=== PATIENT | female | born 1975 | race Hispanic/Latino ===

== ENCOUNTER 2017-11-29 13:12 | Observation (INO) | payer BC ==
[~2017-11-29] VITALS: Ht 172.7 cm; Wt 93.0 kg
[2017-11-29] MEDS ORDERED: MORPHINE SULFATE INJ 10 MG/ML IV ONE (13:30)
[2017-11-29] MEDS ORDERED: PIPER-TAZ 3.375 GM 100 ML IV ONE (16:30)
--- OUTSIDE RECORDS SUMMARY | 2017-11-29 17:45 | XMS REPORT | Continuity of Care Document ---
Author Author [facility] Organization [facility] Address [address] [place] [place] [address] Phone Unavailable Care Team Providers Care Interior Block Wirer Name Role Phone EBONI HERNANDEZ MD PCP Insurance Providers Guarantor Nasreen Gray Address [address] [place] [address] Email [email or web address] Payer [facility] Policy Number [id number] Subscriber's Name Nasreen Gray Relationship 18 Self / Same As Patient Group Number [id number] Group Name [facility] Effective Date 17 Advance Directives Directive Response Recorded Date/Time Does the patient have an advance directive? No 10/22/08 9:53pm If yes, is advance directive on file with [facility]? No 10/22/08 9:53pm If not on file with [facility] will patient provide a copy? No 10/07/14 3:46pm Do you have a Directive to Physician? No 11/29/17 1:11pm Do you have a Medical Power of Airways Operations Specialist? No 11/29/17 1:11pm Do you have an out of hospital Do Not Resuscitate Order? No 11/29/17 1:11pm Do you have any special needs we should be aware of? No 11/29/17 1:11pm Do you have a support person here with you today? Yes 11/29/17 2:10pm Did patient receive Notice of Privacy Practices? Yes 11/29/17 1:11pm Did patient receive patient rights and responsibilities? Yes 11/29/17 1:11pm Problems No problem information available. Medications No medication information available. Social History No social history information available. Hospital Discharge Instructions No hospital discharge instruction information available. Plan of Care Discharge Date 11/29/17 5:28pm Disposition ADMITTED Condition at Discharge Stable Forms Provided Work/School Excuse Prescriptions See Medication Section Functional Status No functional status information available. Allergies, Adverse Reactions, Alerts No known allergies. Immunizations No immunization information available. Vital Signs Acute Vital Signs Vital Response Date/Time Pulse Pulse Rate (adult) 66 bpm (60 - 90) 11/29/2017 5:29pm Respiratory Rate 16 bpm (12 - 24) 11/29/2017 5:29pm Blood Pressure 131/79 mm Hg 11/29/2017 5:29pm Height 5 ft 8 in 11/29/2017 1:19pm Weight 203 lb 11/29/2017 1:19pm Body Mass Index 30.9 kg/m^2 11/29/2017 1:19pm Results No relevant diagnostic test, laboratory data and/or discharge summary information available. Procedures Procedure Status Date Provider(s) Laparoscopic appendectomy Active 11/30/17 NEO HARRIS MD Encounters Encounter Location Arrival/Admit Date Discharge/Depart Date Attending Provider Departed Emergency Room [facility] 11/29/17 1:12pm 5:28pm LAYTON AMBROSE MD
[2017-11-29] MEDS ORDERED: HYDROMORPHONE 1MG/1ML INJ IV PRN (19:15)
--- NOTE | 2017-11-29 19:43 | History and Physical ---
CHIEF COMPLAINT: Right lower quadrant pain. HISTORY OF PRESENT ILLNESS: Patient is a pleasant 42-year-old [facility] because of right lower quadrant pain. The pain had started the morning of admission. It was associated with nausea, vomiting. No diarrhea, no fever, no chills. The patient in the emergency room at [facility] had a CAT scan that revealed uncomplicated appendicitis. Her white count was normal. Vital signs were normal. The patient was then accepted as a transfer by me for further care. The patient's past history is remarkable for a gastric stapling as well as a band some 17 years ago. Past medical history is unremarkable. She is taking no meds. SOCIAL HISTORY: She does not drink, does not smoke. ALLERGIES: HAS NO ALLERGIES. FAMILY HISTORY: Noncontributory. REVIEW OF SYSTEMS: Significant for what has been stated. PHYSICAL EXAMINATION GENERAL: Reveals a 42-year-old female in no acute distress. VITAL SIGNS: She is afebrile with stable vital signs. HEAD, EYES, EARS, NOSE AND THROAT: Examination is unremarkable. LUNGS: Clear. HEART: Reveals regular rhythm. ABDOMEN: Soft with deep tenderness in the right lower quadrant with mild rebound. There were no masses. There is a healed midline supraumbilical incision. EXTREMITIES: Examination reveals no clubbing, cyanosis or edema. NEUROLOGICAL: Examination is nonfocal. ASSESSMENT: Acute nonperforated appendicitis. PLAN: Admit the patient, give intravenous antibiotics, hydration, and proceed with laparoscopic appendectomy 8 a.m. on November 30, 2017. Surgical plans were discussed with the patient. She agrees with the plan. Job#: [id number] EV
[2017-11-29 20:00] VITALS: BP 120/69
[2017-11-29] MEDS: D5.45%NS/KCL 20MEQ 1,000 ML IV SCH (20:32)
[2017-11-29] MEDS: PANTOPRAZOLE 40 MG 10ML VIAL IV SCH (20:45)
[2017-11-29] MEDS: CEFTRIAXONE SOD 2 GM VIAL IV SCH (20:51)
[2017-11-29] MEDS: HYDROMORPHONE 2MG/ML INJ IV PRN (22:06)
[2017-11-29] MEDS: METRONIDAZOLE 750MG/NS 150ML 150 ML IV SCH (23:14)
[2017-11-30] VITALS (8 sets, daily range): BP systolic 95–123; BP diastolic 51–72
[2017-11-30] MEDS: METRONIDAZOLE 750MG/NS 150ML 150 ML IV SCH ×3 (05:51→22:18)
[2017-11-30] MEDS: D5.45%NS/KCL 20MEQ 1,000 ML IV SCH ×2 (05:51→21:00)
[2017-11-30] MEDS: ONDANSETRON HCL INJ 2 MG/ML VIAL IV PRN ×2 (06:03→23:04)
[2017-11-30] MEDS ORDERED: BUPIVACAINE 0.25%/EPI 30ML SDV INJ ONE (07:20)
[2017-11-30] MEDS ORDERED: HYDROCODONE/APAP 7.5MG-325MG 1 EA TAB PO PRN (09:45)
[2017-11-30] MEDS ORDERED: METOCLOPRAMIDE HCL 10 MG/2ML VIAL ONE (09:49)
[2017-11-30] MEDS ORDERED: FENTANYL CITRATE/PF 100MCG/2 ML INJ ONE ×2 (10:00→17:40)
--- NOTE | 2017-11-30 14:51 | Operative Report ---
DATE OF PROCEDURE: November 30, 2017 PREOPERATIVE DIAGNOSIS: Acute appendicitis. POSTOPERATIVE DIAGNOSIS: Acute appendicitis. PROCEDURE PERFORMED: Laparoscopic appendectomy. ANESTHESIA: General endotracheal. ESTIMATED BLOOD LOSS: Minimal. DRAINS: None. COMPLICATIONS: None. MANNEQUIN SANDER AND FINISHER: SUMIT Olivas INDICATIONS AND FINDINGS: This patient is a 42-year-old female admitted from the emergency room at [facility] with acute appendicitis. She had developed pain in the morning of admission, and a CT scan revealed changes consistent with acute appendicitis. Her white count was normal. Physical examination revealed right lower quadrant tenderness with mild rebound. INTRAOPERATIVE FINDINGS: Acute nonperforated appendicitis. There were multiple adhesions from previous gastric stapling for morbid obesity. DESCRIPTION OF PROCEDURE: With the patient lying on the operative table in the supine position, after administration of general endotracheal anesthesia, she was prepped and draped for laparoscopic appendectomy. The procedure was begun by establishing a pneumoperitoneum in the right upper quadrant mid-clavicular line to stay away from the other incision. An incision was made and then a 5-mm trocar placed in that location. The camera was introduced in the umbilical port under direct vision with the camera. Then a 3rd port was placed in the right lower quadrant using 5-mm trocar. At this point, we inspected the operative field. The appendix was identified in the right gutter. It was mobilized through the different ports using bowel clamps. It was elevated. The junction with the cecum was identified. A rent was made in that location with the [place] dissector, and then the appendectomy was performed by firing the Endo KOSTA with the blue stapler across the base of the appendix with the cecum. Then the appendectomy was completed by firing the Endo KOSTA with a vascular white load across the mesentery of the appendix twice. The wound was irrigated. There was some minor bleeding coming from the staple line that was cauterized on the mesentery of the appendix. At this point, we irrigated the right lower quadrant, right gutter and upper quadrant until the effluent fluid was clear. After ascertaining that there was no bleeding and there was no evidence of bowel injury, we released the pneumoperitoneum and closed the wounds using #0 Vicryl for the umbilical fascia, 3-0 Vicryl for the subcutaneous tissue in that location as well as the two other 5-mm trocars. Then the skin of all the ports was closed using rodney. Marcaine 0.25% with epinephrine was used as a local block at the end of the case. The patient tolerated the procedure well and was taken to the recovery room in stable condition. Job#: [id number]
[2017-11-30] MEDS ORDERED: MIDAZOLAM HCL 2 MG/2 ML VIAL ONE (17:40)
[2017-11-30] MEDS ORDERED: ROCURONIUM BROMIDE 10 MG/ML 5ML VIAL ONE ×2 (19:26→19:30)
[2017-11-30] MEDS ORDERED: LIDOCAINE HCL 2% LOCAL INJ 5 ML SDV VIAL INJ ONE ×2 (19:26→19:30)
[2017-11-30] MEDS ORDERED: KETOROLAC TROMETHAMINE 30 MG/ML VIAL ONE ×2 (19:26→19:30)
[2017-11-30] MEDS ORDERED: PROPOFOL IV EMULSION 10 MG/ML 20 ML VIAL ONE ×2 (19:26→19:30)
[2017-11-30] MEDS ORDERED: ONDANSETRON HCL INJ 2 MG/ML VIAL ONE ×2 (19:26→19:30)
[2017-11-30] MEDS ORDERED: DEXAMETHASONE SOD PHOS INJ 4 MG/ML VIAL ONE ×2 (19:26→19:30)
[2017-11-30] MEDS ORDERED: SEVOFLURANE INHAL SOLN 250 ML PEN BTL ONE ×2 (19:26→19:30)
[2017-11-30] MEDS ORDERED: CEFTRIAXONE SOD 1 GM VIAL IV SCH (19:30)
[2017-11-30] MEDS: PANTOPRAZOLE 40 MG 10ML VIAL IV SCH (19:40)
[2017-11-30] MEDS: CEFTRIAXONE SOD 2 GM VIAL IV SCH (20:16)
[2017-11-30] MEDS: HYDROMORPHONE 2MG/ML INJ IV PRN (23:19)
[2017-12-01] VITALS (7 sets, daily range): BP systolic 105–117; BP diastolic 56–69
[2017-12-01] MEDS: D5.45%NS/KCL 20MEQ 1,000 ML IV SCH ×3 (04:23→16:35)
[2017-12-01] MEDS: METRONIDAZOLE 750MG/NS 150ML 150 ML IV SCH ×2 (05:50→14:03)
[2017-12-01 06:07] LABS: BASOPHILS % 0.2 % (0.0-1.0); EOSINOPHILS % 0.1 % (0.0-6.0); HEMATOCRIT 35.1 % (34.2-44.1); HEMOGLOBIN 12.2 g/dL (12.0-16.0); LYMPHOCYTES # (AUTO) 1.7 (1.0-3.2); LYMPHOCYTES % 15.6 % (18.0-39.1); MEAN CORPUSCULAR HEMOGLOBIN 31.7 pg (28-32); MEAN CORPUSCULAR HGB CONC 34.8 g/dL (31-35); MEAN CORPUSCULAR VOLUME 91.2 fL (81-99); MONOCYTES # (AUTO) 0.7 (0.2-0.8); MONOCYTES % 6.3 % (4.4-11.3); NEUTROPHILS # (AUTO) 8.6 (2.1-6.9); NEUTROPHILS % 77.5 % (38.7-80.0); PLATELET COUNT 232 x10e3/uL (140-360); RED BLOOD COUNT 3.85 x10e6/uL (3.6-5.1); RED CELL DISTRIBUTION WIDTH 12.2 % (11.7-14.4)
[2017-12-01 06:27] LABS: ANION GAP 11.1 mmol/L (8-16); BLOOD UREA NITROGEN < 5 mg/dL (7-26); BUN/CREATININE RATIO 7 (6-25); CALCIUM 8.3 mg/dL (8.4-10.2); CARBON DIOXIDE 26 mmol/L (22-29); CHLORIDE 106 mmol/L (98-107); CREATININE, SERUM 0.69 mg/dL (0.57-1.11); EST GLOMERULAR FILTRATION RATE > 60 ML/MIN (60-); GLUCOSE 102 mg/dL (74-118); POTASSIUM 4.1 mmol/L (3.5-5.1); SODIUM 139 mmol/L (136-145)
[2017-12-01] MEDS: HYDROMORPHONE 2MG/ML INJ IV PRN ×2 (10:22→18:53)
[2017-12-01] MEDS: ONDANSETRON HCL INJ 2 MG/ML VIAL IV PRN ×2 (10:23→22:20)
[2017-12-01] MEDS ORDERED: ONDANSETRON HCL 4 MG ORAL DISINTEGRATING TAB PO PRN (19:00)
[2017-12-01] MEDS: PANTOPRAZOLE 40 MG 10ML VIAL IV SCH (19:34)
[2017-12-01] MEDS: CEFTRIAXONE SOD 2 GM VIAL IV SCH (19:47)
[2017-12-02] VITALS: BP 106/53
[2017-12-02] MEDS: D5.45%NS/KCL 20MEQ 1,000 ML IV SCH ×2 (03:18→11:26)
[2017-12-02 04:00] VITALS: BP 92/50
[2017-12-02] MEDS: HYDROMORPHONE 2MG/ML INJ IV PRN (06:23)
[2017-12-02] MEDS: ONDANSETRON HCL INJ 2 MG/ML VIAL IV PRN (06:23)
[2017-12-02 06:56] LABS: BASOPHILS % 0.4 % (0.0-1.0); EOSINOPHILS % 0.6 % (0.0-6.0); HEMATOCRIT 35.4 % (34.2-44.1); HEMOGLOBIN 12.3 g/dL (12.0-16.0); LYMPHOCYTES # (AUTO) 1.2 (1.0-3.2); LYMPHOCYTES % 17.5 % (18.0-39.1); MEAN CORPUSCULAR HEMOGLOBIN 31.7 pg (28-32); MEAN CORPUSCULAR HGB CONC 34.7 g/dL (31-35); MEAN CORPUSCULAR VOLUME 91.2 fL (81-99); MONOCYTES # (AUTO) 0.6 (0.2-0.8); MONOCYTES % 7.9 % (4.4-11.3); NEUTROPHILS # (AUTO) 5.1 (2.1-6.9); NEUTROPHILS % 73.3 % (38.7-80.0); PLATELET COUNT 205 x10e3/uL (140-360); RED BLOOD COUNT 3.88 x10e6/uL (3.6-5.1); RED CELL DISTRIBUTION WIDTH 12.4 % (11.7-14.4)
[2017-12-02 07:27] LABS: BLOOD UREA NITROGEN < 5 mg/dL (7-26); CALCIUM 8.1 mg/dL (8.4-10.2); CARBON DIOXIDE 26 mmol/L (22-29); CHLORIDE 106 mmol/L (98-107); CREATININE, SERUM 0.63 mg/dL (0.57-1.11); EST GLOMERULAR FILTRATION RATE > 60 ML/MIN (60-); GLUCOSE 104 mg/dL (74-118); SODIUM 139 mmol/L (136-145)
[2017-12-02 07:29] LABS: BUN/CREATININE RATIO 8 (6-25)
[2017-12-02 08:30] VITALS: BP 105/53
[2017-12-02 12:21] VITALS: BP 114/63
[2017-12-02] MEDS ORDERED: TYLENOL WITH C1 EACH PO (13:28)
[2017-12-02] MEDS ORDERED: LEVAQUIN500 MG PO (13:28)
== END 2017-12-02 14:27 | disposition home or self-care (01) ==
LOC: FSED 13:12 → IMCU 17:42 → MED/SURG 11-30 18:18
PROVIDERS: ADMIT Surgery; ATTEND Surgery
DX: K35.80 Unspecified acute appendicitis (principal); Z98.84 Bariatric surgery status
CPT/HCPCS: 36415 ×2; 44970; 74177; 80048 ×2; 80053; 81003; 81025 ×2; 85025 ×3; 88304; 96374; 99284; C1766; G0378 ×4; J0696 ×3; J1100; J1170 ×4; J1885; J2001; J2250; J2270; J2405; J2543; J2765

== ENCOUNTER 2019-08-27 18:22 | Emergency (ER) | payer BC ==
[~2019-08-27] VITALS: Ht 172.7 cm; Wt 93.0 kg
[~2019-08-27 18:22] MED LIST: LEVAQUIN500 MG PO; TYLENOL WITH C1 EACH PO
[2019-08-27] MEDS ORDERED: ONDANSETRON HCL INJ 2MG/ML 2ML 2 MG/ML VIAL IV STA (18:52)
[2019-08-27] MEDS ORDERED: KETOROLAC TROMETHAMINE 30 MG/ML VIAL IV STA (18:52)
[2019-08-27] MEDS ORDERED: SODIUM CHLORIDE 0.9% 1000ML 1,000 ML IV SCH ×2 (19:00→19:30)
[2019-08-27] MEDS ORDERED: KETOROLAC TROMETHAMINE 30 MG/ML VIAL ONE (19:23)
[2019-08-27] MEDS ORDERED: ONDANSETRON HCL INJ 2MG/ML 2ML 2 MG/ML VIAL ONE (19:23)
--- NOTE | 2019-08-27 19:58 | Diagnostic Imaging Report ---
EXAMINATION: CT of the abdomen and pelvis without contrast. TECHNIQUE: Helical CT images of the abdomen and pelvis were performed from the lung bases to the lesser trochanters. No intravenous contrast was given per renal stone protocol. Coronal and sagittal reformatted images were obtained.Dose modulation, iterative reconstruction, and/or weight based adjustment of the mA/kV was utilized to reduce the radiation dose to as low as reasonably achievable. COMPARISON: None. CLINICAL HISTORY: abdominal pain DISCUSSION: ABSENCE OF INTRAVENOUS CONTRAST DECREASES SENSITIVITY FOR DETECTION OF FOCAL LESIONS AND VASCULAR PATHOLOGY. ABDOMEN/PELVIS: LOWER THORAX: Unremarkable. HEPATOBILIARY:No focal hepatic lesions. No biliary ductal dilation. Cholecystectomy. SPLEEN: No splenomegaly. PANCREAS: No focal masses or ductal dilatation. ADRENALS: No adrenal nodules. KIDNEYS/URETERS: No hydronephrosis, stones, or solid mass lesions. PELVIC ORGANS/BLADDER: The bladder is normal. PERITONEUM/RETROPERITONEUM: No free air or fluid. LYMPH NODES: No intra-abdominal,retroperitoneal, pelvic or inguinal lymphadenopathy. VESSELS: Limited evaluation GI TRACT: No obstruction. Appendectomy. Gastric banding. BONES AND SOFT TISSUES: No bony destructive lesions. Fat-containing anterior abdominal wall hernia. IMPRESSION: No acute CT finding. Signed by: Dr. Matt Arias M.D. on 08/27/2019 7:55 PM
[2019-08-27] MEDS ORDERED: ZOFRAN4 MG PO (20:07)
[2019-08-27] MEDS ORDERED: COLACE100 MG PO (20:07)
[2019-08-27] MEDS ORDERED: OMEPRAZOLE40 MG PO (20:07)
[2019-08-27] MEDS ORDERED: ULTRAM50 MG PO (20:07)
== END 2019-08-27 20:22 | disposition home or self-care (01) ==
LOC: FSED 18:22
DX: R10.32 Left lower quadrant pain (principal); R11.0 Nausea; K43.9 Ventral hernia without obstruction or gangrene; Z98.84 Bariatric surgery status
CPT/HCPCS: 74176; 80048; 81003; 81025; 85025; 99284; J1885; J2405; J7030